=== PATIENT | female | born 1985 | race Caucasian/White ===

== ENCOUNTER 2017-06-03 14:05 | Emergency (ER) | payer SELFPAY ==
[2017-06-03 14:18] VITALS: BP 126/65; BMI 24.5
[2017-06-03 15:12] LABS: BILIRUBIN,URINE NEGATIVE (NEGATIVE); BLOOD/HEMOGLOBIN,URINE NEGATIVE (NEGATIVE); GLUCOSE, URINE NEGATIVE (NEGATIVE); KETONES,URINE 2+ (NEGATIVE); LEUKOCYTE ESTERASE ,URINE NEGATIVE (NEGATIVE); NITRITES,URINE NEGATIVE (NEGATIVE); PROTEIN,URINE NEGATIVE (NEGATIVE); UROBILINOGEN,URINE NORMAL (NORMAL)
[2017-06-03 15:23] LABS: AMORPHOUS SEDIMENT,UR TRACE /HPF (NEGATIVE); APPEARANCE,URINE CLEAR (CLEAR); BACTERIA,URINE NEGATIVE /HPF (NEGATIVE); COLOR,URINE YELLOW (YELLOW); RBC,URINE NEGATIVE /HPF (NEGATIVE); SQUAMOUS EPITHELIAL CELL,UR RARE /HPF (NEGATIVE)
--- NOTE | 2017-06-04 04:44 | DR.GENAD ---
HPI - PCP Primary Care Physician: KIRBY - HPI Comment HPI Comment: PATIENT HAVE NOTICE SAME PAIN EVERY TIME SHE HAS INTERCOUSE. NO VAGINA BLEEDING. - Complaint/Symptoms Chief Complaint Doctors Comments: LEFT SIDE ABDOMEN AND LEG PAIN AFTER INTERCOURSE ALONG WITH PAIN TAIL BONE AREA. Chief Complaint:: LEFT SIDE ABD AND LEG PAIN AFTER INTERCOURSE AND PAIN TO TAIL BONE AREA - Nurses notes reviewed Nurses Notes Review: Yes - Source History Provided: Patient - Mode of Arrival Mode of Arrival: Ambulatory - Timing Onset of Chief Complaint: 06/03/17 Came on: Suddenly - Duration Duration: Constant Duration: Days - Severity Severity: Moderate PMH - PMH Past Medical History: No Past Surgical History: Yes Surgical History: BOTTLE SELECTOR Surgery Past Surgical History Comment: TUBAL LIGATION - Family History History of Family Medical Conditions: Yes Family Medical History: Diabetes Mellitus, Cancer, [place], Coronary Artery Disease, Heart Failure, Hypertension - Social History Alcohol Use: None Do you use any recreational Drugs:: No Lives With: Family Lives Where: Home - infectious screening In the last 2 months have you had wt loss of >10#?: NO Have you had fever, night sweats or hemotysis?: No Have you traveled outside the country in the last 6 months?: No Isolation: Standard ROS - Review of Systems Constitutional: No Symptoms Reported Eyes: No Symptoms Reported ENTM: No Symptoms Reported Respiratoy: No Symptoms Reported Cardiovascular: No Symptoms Reported Gastrointestinal/Abdominal: Abdominal Pain. negative: Constipation, Diarrhea, Nausea, Vomiting Genitourinary: negative: Dysuria, Frequency, Hematuria Neurological: No Symptoms Reported Musculoskeletal: Back Pain (TAIL BONE AREA.) Integumentary: No Symptoms Reported Endocrine: No Symptoms Reported All Other Systems: Reviewed and Negative PE - Vital Signs Vitals: Temperature 97.9 F Pulse Rate 78 Respiratory Rate 14 Blood Pressure 126/65 O2 Sat by Pulse Oximetry 100 - General Limitations: No Limitations General Appearance: Alert - Head Head Exam: Normal Inspection - Eyes Eye exam: Normal Appearance - ENT ENT Exam: Normal External Ear Exam External Ear Exam: Normal External Inspection TM/Canal Exam: Bilateral Normal Nose Exam: Normal Nose Exam Mouth Exam: Normal Inspection Throat Exam: Normal Inspection - Neck Neck Exam: Normal Inspection - Chest Chest Inspection: Symmetric Chest Wall Rise - Respiratory Respiratory Exam: Normal Lung Sounds Bilat Respiratory Exam: Bilateral Clear to Auscultation - Cardiovascular Cardiovascular Exam: Regular Rate, Normal Rhythm, Normal Heart Sounds - Abdominal Exam Abdominal Exam: Normal Bowel Sounds, Soft. negative: Tenderness - Extremities Extremities Exam: Normal Inspection - Back Back Exam: Vertebral Tenderness ([employer], ) - Neurologic Neurological Exam: Alert, Oriented X3 - Psychiatric Psychiatric Exam: Anxious - Skin Skin Exam: Normal Color MDM - Additional Information Additional Information Obtained From: Family - Differential Diagnosis Differential Diagnosis: DYSPAREUNIA, ABDONMINAL PAIN, LOWER BACK/TAIL BONE FRACTURE, CONTUSION. Course - Treatment Treatment: RECOMMEND XRAY TAIL BONE ABD LOWER BACK WITH ACUTE ABDOMINAL SERIES. COUPLE SIGN AMA. THEY WISH TO HAVE MRI DONE. - Education/Counseling Education/Counseling: Patient, Family Educated On: Diagnosis ROR - Labs Reviewed Laboratory: Specimen Type Clean catch urine 06/03/17 14:58 Urine Color Yellow (YELLOW) 06/03/17 14:58 Urine Appearance Clear (CLEAR) 06/03/17 14:58 Urine pH 7.0 (5.0 - 8.0) 06/03/17 14:58 Ur Specific [place] 1.015 (1.000-1.030) 06/03/17 14:58 Urine Protein Negative (NEGATIVE) 06/03/17 14:58 Urine Glucose (UA) Negative (NEGATIVE) 06/03/17 14:58 Urine Ketones 2+ (NEGATIVE) 06/03/17 14:58 Urine Occult Blood Negative (NEGATIVE) 06/03/17 14:58 Urine Nitrite Negative (NEGATIVE) 06/03/17 14:58 Urine Bilirubin Negative (NEGATIVE) 06/03/17 14:58 Urine Urobilinogen Normal (NORMAL) 06/03/17 14:58 Ur Leukocyte Esterase Negative (NEGATIVE) 06/03/17 14:58 Urine RBC Negative /HPF (NEGATIVE) 06/03/17 14:58 Urine WBC Rare /HPF (NEGATIVE) 06/03/17 14:58 Ur Squamous Epith Cells Rare /HPF (NEGATIVE) 06/03/17 14:58 Amorphous Sediment Trace /HPF (NEGATIVE) 06/03/17 14:58 Urine Bacteria Negative /HPF (NEGATIVE) 06/03/17 14:58 Ur Culture Indicated? No/not indicated 06/03/17 14:58 - Diagnosis Discharge Problem: Abdominal pain, Pain, coccyx, Dyspareunia - Discharge Plan Disposition: 07 AGAINST MEDICAL ADVICE Condition: Stable - Follow ups/Referrals Follow ups/Referrals: NFD,None [Primary Care Provider] - 3 days - Instructions
== END 2017-06-03 15:40 | disposition left against medical advice (07) ==
LOC: ER 14:29
DX: R10.84 Generalized abdominal pain (principal); N94.10 Unspecified dyspareunia; M53.3 Sacrococcygeal disorders, not elsewhere classified
CPT/HCPCS: 81001; 99282; 99283